=== PATIENT | female | born 1965 | race Caucasian/White ===

== ENCOUNTER 2017-07-24 09:11 | Emergency (ER) | payer OTHER, SELFPAY ==
[2017-07-24 09:12] VITALS: BP 96/57; PULSE 64; RESP 16; TEMP 36.4; O2SAT 97; BMI 26.4
--- NOTE | 2017-07-24 09:21 | RAD_ITS ---
STUDY: X-RAY - left WRIST REASON FOR EXAM: Female, 51 years old. Pain and deformity following a fall. TECHNIQUE: 3 view(s) of the wrist were obtained. COMPARISON: None. FINDINGS: There is a comminuted nondisplaced fracture of the distal radial metaphysis. There is evidence of dorsal facing. Normal radiocarpal articulation. Normal distal radioulnar articulation. Normal carpal bones. Normal carpal articulations. Normal carpometacarpal articulation of the thumb. Normal second through fifth carpometacarpal articulations. Normal visualized metacarpal bones. Soft tissue swelling. RAD/Wrist min 3 Views IMPRESSION: Nondisplaced comminuted fracture of the distal radial metaphysis with dorsal facing and overlying soft tissue swelling. Electronically Signed: Carlos Gonsales MD at 9:48 EST Tel [phone], Service support ,
--- NOTE | 2017-07-24 09:26 | ED.VISSUMM ---
- ER Visit Summary Date of Service: 07/24/17 Chief Complaint: Slipped on ice falling and injuring her left wrist. History of Present Illness: The patient is a 51 F in her normal state of health. Slipped today on ice injuring her left wrist. She is left-hand dominant. She denies any prior history to the left upper extremity or any prior surgery. She denies hitting her head. Prior to the fall she said she felt fine. Since the fall she says she has a little dizzy. She denies any loss of conscious. She is on no blood thinners. She is on no medications. She denies any recent illness. Physical Examination: Middle-aged female no acute distress. Her initial blood pressure is 96/57 hours she sitting up she is awake and alert she is in no distress. And states her blood pressure normally runs around 100. HEENT exam is completely atraumatic and nontender. Pupils are round reactive to light. C-spine, T-spine, LS-spine and back is nontender. She has normal range of motion to her neck trachea is nontender. Lungs clear to auscultation bilaterally. Chest wall nontender. Heart regular rate and rhythm rate in the 60s. Abdomen soft nontender. Pelvic girdle intact. The right upper extremity and both lower extremities are nontender with normal range of motion. The left collarbone, shoulder, upper arm, proximal forearm are all nontender. The left hand is neurovascularly intact. The skin is intact. She has normal cap refill and touch sensation. She is able to wiggle her fingers. There is an obvious deformity of the left wrist consistent with a wrist fracture. Skin is intact. As is the radial pulse. Neurologically she is awake and alert without focal deficits. Test Results: Left wrist x-ray 3 views show distal radius fracture with dorsal displacement about 45? of angulation. Post reduction film shows significant improvement. But there is still some loss of the volar tilt. Emergency Department Course and Treatment: Spoke with Dr. Azael Meek automation operator for orthopedics. He will see the patient in follow-up in his office. Procedures: Sedation using propofol. Patient received a total of 110 mg of propofol. Patient tolerated the conscious sedation very well and is awake and alert with stable vital signs post procedure. Left wrist fracture closed reduction by ER. Short arm AP splint by ER. Treatment Plan: Call follow-up with Dr. Azael Meek soon as possible. [place] and Motrin for pain. Ice and elevate. Keep splint dry and clean. Patient I did discuss that there is a very high likelihood that she will will need surgical repair of the fracture. Disposition: Discharge Impression: Acute fall on ice Left wrist fracture of the distal radius with displacement and dorsal angulation Short arm AP splint by ER. Conscious sedation using propofol by ER Left wrist closed fracture reduction by ER This note was generated with [employer] dictation software. It may contain incorrect words, spelling, and punctuation that were not noted in review of the chart prior to signing ED Disposition - Plan for ED Patient: Chief Complaint: Fall Referrals: Don Perkins MD [Primary Care Provider] -
--- NOTE | 2017-07-24 09:33 | ED.DCSUM_ITS ---
- ER Visit Summary Date of Service: 07/24/17 Chief Complaint: Slipped on ice falling and injuring her left wrist. History of Present Illness: The patient is a 51 F in her normal state of health. Slipped today on ice injuring her left wrist. She is left-hand dominant. She denies any prior history to the left upper extremity or any prior surgery. She denies hitting her head. Prior to the fall she said she felt fine. Since the fall she says she has a little dizzy. She denies any loss of conscious. She is on no blood thinners. She is on no medications. She denies any recent illness. Physical Examination: Middle-aged female no acute distress. Her initial blood pressure is 96/57 hours she sitting up she is awake and alert she is in no distress. And states her blood pressure normally runs around 100. HEENT exam is completely atraumatic and nontender. Pupils are round reactive to light. C- spine, T-spine, LS-spine and back is nontender. She has normal range of motion to her neck trachea is nontender. Lungs clear to auscultation bilaterally. Chest wall nontender. Heart regular rate and rhythm rate in the 60s. Abdomen soft nontender. Pelvic girdle intact. The right upper extremity and both lower extremities are nontender with normal range of motion. The left collarbone, shoulder, upper arm, proximal forearm are all nontender. The left hand is neurovascularly intact. The skin is intact. She has normal cap refill and touch sensation. She is able to wiggle her fingers. There is an obvious deformity of the left wrist consistent with a wrist fracture. Skin is intact. As is the radial pulse. Neurologically she is awake and alert without focal deficits. Test Results: Left wrist x-ray 3 views show distal radius fracture with dorsal displacement about 45? of angulation. Post reduction film shows significant improvement. But there is still some loss of the volar tilt. Emergency Department Course and Treatment: Spoke with Dr. Azael Meek instructional developer for orthopedics. He will see the patient in follow-up in his office. Procedures: Sedation using propofol. Patient received a total of 110 mg of propofol. Patient tolerated the conscious sedation very well and is awake and alert with stable vital signs post procedure. Left wrist fracture closed reduction by ER. Short arm AP splint by ER. Treatment Plan: Call follow-up with Dr. Azael Meek soon as possible. [place] and Motrin for pain. Ice and elevate. Keep splint dry and clean. Patient I did discuss that there is a very high likelihood that she will will need surgical repair of the fracture. Disposition: Discharge Impression: Acute fall on ice Left wrist fracture of the distal radius with displacement and dorsal angulation Short arm AP splint by ER. Conscious sedation using propofol by ER Left wrist closed fracture reduction by ER This note was generated with [employer] dictation software. It may contain incorrect words, spelling, and punctuation that were not noted in review of the chart prior to signing ED Disposition - Plan for ED Patient: Chief Complaint: Fall Referrals: Don Perkins MD [Primary Care Provider] -
[2017-07-24 10:42] VITALS: BP 119/83; PULSE 61; RESP 13; O2SAT 100
[2017-07-24 10:50] VITALS: BP 108/68; BP 111/76; BP 112/66; BP 113/70; BP 130/113; PULSE 59; PULSE 60; PULSE 62; PULSE 66; PULSE 67; PULSE 72; RESP 12; RESP 14; RESP 16; RESP 17; O2SAT 100; O2SAT 99
--- NOTE | 2017-07-24 11:08 | RAD_ITS ---
STUDY: X-RAY - LEFT WRIST REASON FOR EXAM: Female, 51 years old. Post reduction examination. TECHNIQUE: 3 view(s) of the wrist were obtained. COMPARISON: Comparison is made with prior study done earlier today. FINDINGS: There is satisfactory reduction of the comminuted fracture of the distal radius. There now is evidence of neutral facing. Normal radiocarpal articulation. Normal distal radioulnar articulation. Normal carpal bones. Normal carpal articulations. Normal carpometacarpal articulation of the thumb. Normal second through fifth carpometacarpal articulations. Normal visualized metacarpal bones. Soft tissue swelling. RAD/Wrist min 3 Views IMPRESSION: Post reduction examination. Satisfactory reduction. Neutral facing. Electronically Signed: Carlos Gonsales MD at 11:45 EST Tel [phone], Service support ,
[2017-07-24] MEDS: Propofol 200 MG/20 ML Vial 40 MG IV BOLUS (11:12)
--- NOTE | 2017-07-24 11:37 | DCINST.ED_ITS ---
ED Disposition - Plan for ED Patient: Disposition: Home or Assisted Living Chief Complaint: Fall Instructions: ED Fx Wrist General Prescriptions: Hydrocodone Bitart/Apap 5-325 [[place] 5MG-325MG] 1 - 2 tab PO Q4H PRN PRN #20 tab PRN Reason: Pain Referrals: Azael Meek DO [STAFF PHYSICIAN] - As soon as possible Additional Instructions: Keep splint dry and clean. Very important to ice and elevate the wrist to decrease pain and swelling. [place] for pain and Motrin. The [place] can cause you to be sedated and constipation so plenty of fluids and fiber. No driving while taking the pain medication. Call and follow-up with the orthopedic doctor Dr. Azael Meek as soon as possible for further evaluation and most likely orthopedic surgery of the broken wrist.
[2017-07-24] MEDS: Ondansetron 4 MG/2 ML Vial IM (12:00)
--- NOTE | 2017-07-24 12:36 | ED.RN ---
Verbal and written d/c instructions given. All questions answered. Gait slow and steady out of ED. CMS intact to left wrist upon discharge.
== END 2017-07-24 12:37 | disposition home or self-care (01) ==
PROVIDERS: Emergency Provider Emergency Medicine; Family Provider Family Medicine; PCP Family Medicine
DX: S52.502A Unspecified fracture of the lower end of left radius, initial encounter for closed fracture (principal); W00.0XXA Fall on same level due to ice and snow, initial encounter; Y93.9 Activity, unspecified; Y92.9 Unspecified place or not applicable; Y99.9 Unspecified external cause status
CPT/HCPCS: 29125; 73100; 73110; 99152; 99285; J7030; A4216; J2405

== ENCOUNTER 2017-10-24 08:00 | Outpatient (RCR) | payer OTHER, SELFPAY ==
--- NOTE | 2017-09-25 18:37 | HP.OTEVAL ---
Patient's Visit Information EARLENE LAKHANI is a 51 year old F, referred to Occupational Therapy by Out of Town Doctor,JEREMY MATA, with a diagnosis of L radius fx; ORIF L radius. Date of Evaluation: 09/25/17 Occupational Therapist: Jo Pickering - Subjective Subjective: Pt., Earlene, is L hand dominant. Inital injury to L hand Janurary with ORIF of L radius following 07/31/17. She has plate and 7 screws. She fell while in driveway. - Pain Left Wrist 0 Pain Intensity Range: 0, 3 - Objective Objective/Observation: Pt. scar closed and healed. No signs of infection. Minimal scar tissue formation. Skin easily palpated and moveable. Limited ROM and strength at this time. - ROM Forearm: supination R 0-80, L 0-51 Wrist: flexion R 0-90, L 0-51; ext R 0-58, L 0-22 ROM Comments: radial dev : R 0-25, L 0-11. ulnar dev R 0-39, L 0-10 - Strength Energy Efficient Site Manager: R 58, L 20 Lateral Pinch: R 15, L 7 Tripod Pinch: R 16, L 4 Tip-to-Tip Pinch: R 7, L 3 - Edema Other: none noted at this time. - Sensation Sensation Comments: Denies dumbness and timging at this time. - Nine Hole Peg Right: 16.03 s Left: 18.76 s - In-Hand Manipulation Finger to Palm Translation: Normal - Right, Normal - Left Palm to Finger Translation: Normal - Right, Normal - Left Shift: Normal - Right, Normal - Left Rotation: Normal - Right, Normal - Left - DASH-Disabilities of Arm, Shoulder& Hand DASH Sum: 58 - Goals Goal:: Earlene to increased R medical legal investigator by 15-20 lbs to promote increased medical legal investigator and ability to manipulate self-care items 4/5 trials 08% of the time by d/c. Goal:: Sraah to increased L wrist ROM by 10-15 degrees to promote increased flex/ext to promote mobility of L wrist for ADl/IADls by time fo d/c. Goal:: Earlene to have no more than 1/10 pain when complete ADl/IAdls with L wrist and hand 4/5 trials 80% of the time by d/c. Goal:: Earlene to increase L hand dexterity and FMC as exhibited through decreased time on 9 hole pegboard test to promote increased ability to complete in ahnd manipulation and finger dexterity skills by time of d/c. Goal:: Earlene to be (I) to complete jt portectiona nd correct body mechanics to promote L wrist intrgrity and decrease risk of further injury 2/3 trials 75% of the time by d/c. Goal:: Earlene to be (I) to completing all ADL and IADl si.g accepting change, compelet cooking tasks 4/5 fo the time with minimal pain by d/c. - Rehabilitation General Assessment: Pt., Earlene, arrived for OT evaluation. She presents with increased stiffness and decreased ROM of L dominant wrist at this time. She reports pain minimal at this time. Scar is closed and healing nicely. Some increased sensitivity over scar. Densesitization protocol to be established and implemented. Earlene to complete OT to promote increasing use of L hand and wrist at PLOF to promote increased ability to complete ADl/IADls with L dominant hand by d/c. Rehabilitation Potential: Excellent - Anticipated Interventions Anticipated Interventions: Early Active Motion, A/AAROM/PROM, Strengthening, Scar Care, Massage, Desensitization, Modalities, Joint Protection/Energy Conservation, Ergonomic Education, Fine Motor Coord/Sajan, ADL Training, Caregiver Training, Home Program - Visit Plan Frequency: 2x /Week Duration: 6 Weeks General Plan: Earlene to complete OT to promote ROM, strength, and ability to return to PLOF with L dominant hand. Modalities of PB, fluidotherapy to be used as needed for soft tissue mobility, jt mobilization, and scar desensitization. Additional techniques of vibration and scar massage to be completed as well. Edema minimal but edema management techniques to be used as needed. TEXT: Thank you for the opportunity to evaluate your patient. For Medicare and Medicare HMO plans, please review the plan of care and approve it. It will need to be FAXED BACK to us at [phone] for Medicare purposes. Please let me know if there are questions or concerns regarding this plan of care. Physician Signature: Date:
--- NOTE | 2017-10-24 08:37 | HP.OTDCSUM_ITS ---
HP - OT D/C Summary It has been my pleasure to treat EARLENE LAKHANI under orders from Out of Town Doctor, for the diagnosis of L radius fx; ORIF L radius for a total of 9 visit(s ). Please see the following information for a summary of their discharge status. - Objective Objective/Function: Reassessment occured on date. 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 She is compelting all ADl/IADls (I). ROM measurements are as follows: wrist flexion R 0-92, L 0-69; ext 0-59, L 0-41; supination R WNL; L 0-66; radial dev R 0-11, L 0-11; ulnar dev R 0-29, L 0-16. Strength measurements are as follows: single wire saw operator R 100, L 52; lateral R 14, L 11; three jaw R 10, L 10; tip pinch R 6, L 5 lbs. ( hole pegboard test has progressed with L 17.8 s, and R 16.3 s. She has progresed from total score sum of 58 to 32 on DASH indicating increased ability and improvement with completing all tasks All measurements have progressed from evaluation. She will be d/c'd at this time. - Goals Patient Goals: Regain Mobility, Regain Strength, Decrease Pain, Return to Work, Decrease Swelling/Stiffness, Improve Fine Motor Skills, Use Hand/Wrist/Arm Normally Again, Increase ROM, Be More Independent in ADLS, Decrease Sensitivity , Resume Former Household Responsibilities (Cooking,Cleaning,Yard, etc.), Resume Hobbies Goal:: Earlene to increased L single wire saw operator by 15-20 lbs to promote increased single wire saw operator and ability to manipulate self-care items 4/5 trials 08% of the time by d/c. Goal:: Earlene to increased L wrist ROM by 10-15 degrees to promote increased flex /ext to promote mobility of L wrist for ADl/IADls by time fo d/c. Goal:: Earlene to have no more than 1/10 pain when complete ADl/IAdls with L wrist and hand 4/5 trials 80% of the time by d/c. Goal:: Earlene to increase L hand dexterity and FMC as exhibited through decreased time on 9 hole pegboard test to promote increased ability to complete in nd manipulation and finger dexterity skills by time of d/c. Goal:: Earlene to be (I) to complete jt protection and correct body mechanics to promote L wrist intrgrity and decrease risk of further injury 2/3 trials 75% of the time by d/c. Goal:: Earlene to be (I) to completing all ADL and IADLs e.g. accepting change, compelet cooking tasks 4/5 trials 80% of the time with minimal pain by d/c. - Plan Plan: Pt. to be d/c'd today. She is to call with questions/concerns. She has progressed nicely and meant most goals. She consistently has no pain and has returned to all ADL/IADLS at this time. - D/C Information Discharge Comments: Earlene has progressed nicely. She is to continue HEP to address strength. She has progressed and meant all goals at this time. She is to call with questions/concerns. If there are questions or concerns regarding this patient's occupational therapy , please fell free to call me at [phone]. Thank you for the referral of this patient. Sincerely, Jo Pickering
== END 2017-10-24 10:14 | disposition home or self-care (01) ==
LOC: OT 08:00
PROVIDERS: Family Provider Family Medicine; PCP Family Medicine
DX: S52.502D Unspecified fracture of the lower end of left radius, subsequent encounter for closed fracture with routine healing (principal)
CPT/HCPCS: 97018; 97110; 97166; 97168; 97530

== ENCOUNTER 2020-10-13 19:59 | Emergency (ER) | payer OTHER, SELFPAY ==
[2020-10-13 19:59] VITALS: BP 136/77; PULSE 83; RESP 16; TEMP 36.6; O2SAT 98; BMI 26.4
--- NOTE | 2020-10-13 20:14 | RAD_ITS ---
STUDY: X-RAY - LEFT FOOT CLINICAL: Female, 55 years old. Foreign substance. Splinter in the plantar surface of the foot along the distal first through third metatarsals. TECHNIQUE: 3 view(s) of the foot. COMPARISON: None. FINDINGS: Normal talus, calcaneus, and tarsal bones. Normal visualized subtalar, talonavicular, calcaneocuboid, tarsal and tarsometatarsal articulations. Normal metatarsi. Normal metatarsophalangeal joint of the great toe. There is a bipartite tibial sesamoid. Normal interphalangeal joint of the great toe. Normal phalanges of the great toe. Normal second through fifth metatarsophalangeal joints. Normal interphalangeal joints and phalanges of the lesser toes. The soft tissue structures are unremarkable. No visualized opaque foreign body RAD/Foot min 3 Views IMPRESSION: No opaque foreign body within the soft tissues. There is no fracture or dislocation. Electronically Signed: Beni Gaffney DO at 20:45 EDT Tel [phone], Service support ,
[2020-10-13] MEDS: Diphth,Pertuss(Acell),Tet Vac 0.5 ML Vial IM (20:47)
[2020-10-13] MEDS: Lidocaine 1% (20 ml mdv) 20 ML Vial INFILT (20:48)
--- NOTE | 2020-10-13 21:10 | ED.VISSUMM ---
- ER Visit Summary Date of Service: 10/13/20 Chief Complaint: Foreign body left foot History of Present Illness: The patient is a 55 F who presents with a foreign body to her left foot that occurred today. Patient states she was in her bare feet and stepped on a wooden splinter. Patient states she felt it go into her foot. Patient is unsure of her last tetanus. Patient denies any paresthesias or weakness. Patient states the bleeding stopped after a few minutes. Patient denies any other injuries. Physical Examination: Vital signs are stable. Patient is afebrile. Patient is in no acute distress. Skin is warm and dry. There is tenderness and a puncture wound over the plantar aspect of the left foot. There is some mild bleeding. There is a palpable foreign body noted. Sensation was intact to light touch in all digits of the left foot. Strength is 5/5 in flexion and extension of all digits of the left foot. Pedal pulses are equal bilaterally. There is full range of motion. Test Results: X-rays of the left foot were obtained. There are 3 views. On my interpretation, there is no foreign body noted. There is no acute fracture noted. There is no soft tissue swelling noted. Radiologist also interpreted the x-ray and agrees. Emergency Department Course and Treatment: The wound was cleaned and anesthetized with 1% plain lidocaine locally. The foreign body was localized and removed with hemostats. Patient tolerated the procedure well. Bacitracin dressing was applied. Patient was given a dose of Keflex here. Patient was given a prescription for Keflex. Patient was instructed to follow-up with her primary care physician in 5 to 7 days. Patient understood and was agreeable with the plan. All questions were answered. Disposition: Discharge home Impression: 1. Foreign body left foot 2. Foreign body removal by emergency physician This note was generated with [employer] dictation software. It may contain incorrect words, spelling, and punctuation that were not noted in review of the chart prior to signing ED Disposition - Plan for ED Patient: Disposition: Home or Assisted Living Diagnosis: Foreign body in left foot Instructions: ED Foreign Body, Soft Tissue (Removed) Prescriptions: Cephalexin [Keflex] 500 mg PO Q6 #40 capsule Transmission Status: Received by [id number] Referrals: Don Perkins MD [Primary Care Provider] - 5-7 Days
[2020-10-13] MEDS: Cephalexin 500 MG Capsule PO (21:31)
== END 2020-10-13 21:42 | disposition home or self-care (01) ==
PROVIDERS: Emergency Provider Emergency Medicine; PCP Family Medicine
DX: S90.852A Superficial foreign body, left foot, initial encounter (principal); W45.8XXA Other foreign body or object entering through skin, initial encounter; Z23 Encounter for immunization
CPT/HCPCS: 73630; 90471; 90715; 99283